=== PATIENT | female | born 1990 | race Two or more races ===

== ENCOUNTER 2025-06-24 09:15 | Inpatient (IN) | payer OTHER ==
[~2025-06-24] VITALS: Ht 157.5 cm; Wt 59.4 kg
[2025-06-24 10:46] VITALS: BP 112/72
[2025-06-24 11:13] LABS: URINE APPEARANCE Clear; URINE BILIRRUBIN Negative (NEGATIVE); URINE BLOOD Negative; URINE COLOR Yellow; URINE GLUCOSE Negative (NEGATIVE); URINE KETONE Negative (NEGATIVE); URINE LEUKOCYTE Negative; URINE NITRATE Negative; URINE PROTEIN Negative (NEGATIVE); URINE UROBILINOGEN 0.2 E.U./dl
[2025-06-24 11:16] LABS: URINE BACTERIA 196.7 uL (0.0-1933); URINE EPITHELIAL CELLS 13.8 uL (0.0-38.8); URINE RBC 6.0 uL (0.0-20.8); URINE WBC 11.5 uL (0.0-23.2)
[2025-06-24 11:16] LABS: BASO % 0.7 % (0.1-1.2); EOS # 0.08 (0.04-0.54); EOS % 1.2 % (0.7-7.0); LYMPH # 2.26 (1.18-3.74); LYMPH % 33.8 % (19.3-53.1); MEAN PLATELET VOLUME 11.00 fl (9.4-12.4); MONO # 0.46 (0.24-0.82); MONO % 6.9 % (4.7-12.5); NEUT # 3.81 (1.56-6.13); NEUT % 57.1 % (34.0-71.1); RED CELL DISTRIBUTION WIDTH 12.8 % (11.6-14.4)
[2025-06-24 11:30] LABS: ALT/SGPT 22 U/L (12-78); AST/SGOT 12 U/L (15-37); BILIRUBIN TOTAL 0.72 mg/dL (0.3-1.2); BUN CREA RATIO 13 (7.0-25.0); CREATININE SERUM 0.76 mg/dL (0.55-1.02); GFR 85.63; GLOBULINA 4.1 G/DL (2.4-3.5); GLUCOSE FASTING 88 mg/dL (65-100); INR 1.05; OSMOLALITY SERUM 282 MOSM/KG (275-295)
[2025-06-24 11:32] LABS: HCG QUANTITATIVE < 1 mUI/mL (1-3)
[2025-06-24 11:42] LABS: URINE CAST 0.14 uL (0.0-1.40)
[2025-06-28 15:24] LABS: RH POSITIVE
[2025-06-29] MEDS ORDERED: VASOPRESSIN 20 UNITS/ML VIAL IJ ONE (09:00)
[2025-06-29] MEDS ORDERED: CEFAZOLIN SODIUM 1,000 MG VIAL IV ONE (09:00)
[2025-06-29] MEDS ORDERED: METHYLENE BLUE 10MG/ML 10 ML AMPUL IV ONE (09:00)
[2025-06-29] MEDS ORDERED: TRANEXAMIC ACID 100MG/1ML (1000MG) AMPUL IV ONE (09:00)
[2025-06-29] MEDS ORDERED: RINGERS SOLUTION,LACTATED 1,000 ML IV SCH (16:45)
[2025-06-29] MEDS ORDERED: GABAPENTIN 300 MG CAPSULE PO SCH (17:00)
[2025-06-29] MEDS ORDERED: OxyCODONE HCL 5 MG TABLET (ROXICODONE) PO PRN (17:00)
[2025-06-29 17:40] VITALS: BP 103/62
[2025-06-29] MEDS ORDERED: ACETAMINOPHEN 500 MG GEL..CAP PO SCH (18:00)
[2025-06-29] MEDS ORDERED: KETOROLAC TROMETHAMINE 30 MG VIAL IV SCH (18:00)
[2025-06-29 19:24] LABS: BASO % 0.1 % (0.1-1.2); EOS # 0.00 (0.04-0.54); EOS % 0.0 % (0.7-7.0); LYMPH # 0.71 (1.18-3.74); LYMPH % 3.2 % (19.3-53.1); MEAN PLATELET VOLUME 10.60 fl (9.4-12.4); MONO # 0.92 (0.24-0.82); MONO % 4.2 % (4.7-12.5); NEUT # 20.29 (1.56-6.13); NEUT % 92.0 % (34.0-71.1); RED CELL DISTRIBUTION WIDTH 12.3 % (11.6-14.4)
[2025-06-30] VITALS: BP 97/60
[2025-06-30 07:44] LABS: BASO % 0.3 % (0.1-1.2); EOS # 0.05 (0.04-0.54); EOS % 0.4 % (0.7-7.0); LYMPH # 2.18 (1.18-3.74); LYMPH % 17.4 % (19.3-53.1); MEAN PLATELET VOLUME 11.30 fl (9.4-12.4); MONO # 1.14 (0.24-0.82); MONO % 9.1 % (4.7-12.5); NEUT # 9.07 (1.56-6.13); NEUT % 72.4 % (34.0-71.1); RED CELL DISTRIBUTION WIDTH 12.7 % (11.6-14.4)
[2025-06-30 09:06] VITALS: BP 103/64
[2025-06-30] MEDS ORDERED: OxyCODONE HCL 5 MG TABLET (ROXICODONE) PO PRN (10:09)
[2025-06-30] MEDS ORDERED: DOCUSATE SODIUM 100MG CAP PO SCH (12:00)
[2025-06-30] MEDS ORDERED: SIMETHICONE 125 MG CAPSULE PO SCH (12:00)
[2025-06-30 17:46] VITALS: BP 112/67
[2025-07-01 00:43] VITALS: BP 99/64
[2025-07-01 17:02] VITALS: BP 103/66
[2025-07-01] MEDS ORDERED: CYCLOBENZAPRINE HCL 5 MG TABLET PO SCH (20:05)
[2025-07-02 00:38] VITALS: BP 111/69
[2025-07-02 07:30] LABS: BASO % 0.6 % (0.1-1.2); EOS # 0.38 (0.04-0.54); EOS % 4.5 % (0.7-7.0); LYMPH # 1.79 (1.18-3.74); LYMPH % 21.4 % (19.3-53.1); MEAN PLATELET VOLUME 11.10 fl (9.4-12.4); MONO # 0.58 (0.24-0.82); MONO % 6.9 % (4.7-12.5); NEUT # 5.56 (1.56-6.13); NEUT % 66.5 % (34.0-71.1); RED CELL DISTRIBUTION WIDTH 12.8 % (11.6-14.4)
[2025-07-02 07:39] LABS: ALT/SGPT 16.0 U/L (12-78); AST/SGOT 23.0 U/L (15-37); BILIRUBIN TOTAL 0.41 mg/dL (0.3-1.2); BUN CREA RATIO 19.0 (7.0-25.0); CREATININE SERUM 0.43 mg/dL (0.55-1.02); GFR 165.22; GLOBULINA 2.5 G/DL (2.4-3.5); GLUCOSE FASTING 88.0 mg/dL (65-100); OSMOLALITY SERUM 285.0 MOSM/KG (275-295)
[2025-07-02 08:00] VITALS: BP 115/75
[2025-07-02 18:56] VITALS: BP 107/68
[2025-07-03 00:09] VITALS: BP 107/70
[2025-07-03 08:00] VITALS: BP 117/72
[2025-07-03 09:26] LABS: BASO % 0.5 % (0.1-1.2); EOS # 0.33 (0.04-0.54); EOS % 5.0 % (0.7-7.0); LYMPH # 1.74 (1.18-3.74); LYMPH % 26.4 % (19.3-53.1); MEAN PLATELET VOLUME 10.60 fl (9.4-12.4); MONO # 0.47 (0.24-0.82); MONO % 7.1 % (4.7-12.5); NEUT # 4.00 (1.56-6.13); NEUT % 60.7 % (34.0-71.1); RED CELL DISTRIBUTION WIDTH 12.8 % (11.6-14.4)
== END 2025-07-03 11:41 | disposition home or self-care (01) | DRG 743 ==
LOC: O/R 06-29 06:00 → OB/GYN 06-29 09:15
PROVIDERS: ADMIT Student in an Organized Health Care Education/Training Program; ATTEND Student in an Organized Health Care Education/Training Program
PROC: 0WBH0ZZ Excision of Retroperitoneum, Open Approach (ICD-10-PCS; 2025-06-29)
PROC: 0UB50ZZ Excision of Right Fallopian Tube, Open Approach (ICD-10-PCS; 2025-06-29)
PROC: 0UB90ZZ Excision of Uterus, Open Approach (ICD-10-PCS; principal; 2025-06-29 11:00)
DX: D25.2 Subserosal leiomyoma of uterus (principal); N80.3C3 Endometriosis of bilateral uterosacral ligament(s), unspecified depth; N94.6 Dysmenorrhea, unspecified; N80.351 Endometriosis of the right pelvic sidewall, unspecified depth; N80.201 Endometriosis of right fallopian tube, unspecified depth